=== PATIENT | male | born 2000 | race Caucasian/White ===

== ENCOUNTER 2021-05-11 19:24 | Emergency (ER) | payer OTHER ==
[2021-05-11] MEDS ORDERED: CETIRIZINE 10 MG TABLET PO STA (20:24)
[2021-05-11] MEDS ORDERED: predniSONE 20 MG TABLET PO STA (20:24)
--- NOTE | 2021-05-11 20:26 | ED Physician Documentation ---
History of Present Illness - Stated complaint Stated Complaint: HIVES/ITCHING - Chief complaint Chief Complaint: General - History obtained from History obtained from: Patient - History of Present Illness Timing: How many weeks ago (4) Pain level max: 0 Pain level now: 0 - Additonal information Additional information: Patient is a 20-year-old male, active [employer] who presents to the emergency department complaining of hives for the past month. He states that these occur after scratching or wearing tight clothes. Nothing seems to make it better or worse. He thinks that it may have started after taking aspirin about a month ago and developed hives at that time. He states that it occurs within 30 secon ds of scratching the affected area and can last for a few hours. No new medications, soaps, detergents. No recent illnesses. Review of Systems Constitutional: denies: Fever, Myalgias GI: denies: Vomiting, Diarrhea : denies: Dysuria Neurologic: denies: Headache PD PAST MEDICAL HISTORY - Past Medical History Past Medical History: No Cardiovascular: None Respiratory: None Neuro: None Endocrine/Autoimmune: None GI: None : None HEENT: None Psych: None Musculoskeletal: None Derm: None - Past Surgical History Past Surgical History: No - Present Medications Home Medications: Ambulatory Orders Medication Instructions Recorded Confirmed Cetirizine [ZyrTEC] 10 mg PO DAILY #30 tablet 05/11/21 predniSONE [Deltasone] 10 mg PO [id number] #42 tab 05/11/21 - Allergies Allergies/Adverse Reactions: Allergies Allergy/AdvReac Type Severity Reaction Status Date / Time aspirin AdvReac Hives Verified 05/11/21 19:37 - Social History Does the pt smoke?: No Smoking Status: Never smoker Does the pt drink ETOH?: No Does the pt have substance abuse?: No - Immunizations Immunizations are current?: Yes - POLST Patient has POLST: No PD ED PE NORMAL - Vitals Vital signs reviewed: Yes - General General: Alert and oriented X 3, No acute distress - HEENT HEENT: Moist mucous membranes - Neck Neck: Supple, no meningeal sign - Cardiac Cardiac: RRR - Respiratory Respiratory: No respiratory distress, Clear bilaterally - Abdomen Abdomen: Soft, Non tender, Non distended - Derm Derm: Warm and dry, Other (Patient has immediate skin eruption after light scratching. 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 Unclear etiology. We will trial on antihistamines as well as steroids. We will have him follow-up with his doctor for referral likely to dermatology or immunology. Patient counseled regarding signs and symptoms for which I believe and urgent re-evaluation would be necessary. Patient with good understanding of and agreement to plan and is comfortable going home at this time This document was made in part using voice recognition software. While efforts are made to proofread this document, sound alike and grammatical errors may occur. Departure - Departure Disposition: Home, Self Care Clinical Impression: Dermographic urticaria Condition: Good Instructions: ED Urticaria Follow-Up: your,doctor in 1week [Other] Prescriptions: predniSONE [Deltasone] 10 mg PO [id number] #42 tab Cetirizine [ZyrTEC] 10 mg PO DAILY #30 tablet Comments: You appear to have dermographism. This is usually immune mediated. Often times antihistamines will help. Sun exposure may also help improve the condition. It is recommended that you follow-up with a corporate representative and/or fur trimming machine operator for further care. [place] Your prescriptions were sent to [facility] in [place].
[2021-05-11 20:32] VITALS: BP 132/84
== END 2021-05-11 20:35 | disposition home or self-care (01) ==
LOC: ED 19:24
DX: L50.3 Dermatographic urticaria (principal)
CPT/HCPCS: 99282; 99283; A9270; J7512

== ENCOUNTER 2021-08-06 14:48 | Outpatient (CLI) | payer OTHER | END 2021-08-06 14:49 | disposition left against medical advice (07) | LOC: EMS 14:48 | DX: R55 Syncope and collapse (principal) ==

== ENCOUNTER 2022-12-26 17:29 | Emergency (ER) | payer OTHER ==
[2022-12-26 17:46] VITALS: BP 113/73; O2SAT 97
[2022-12-26 19:02] LABS: B. PARAPERTUSSIS- RESP PCR PAN NOT DETECTED; B. PERTUSSIS- RESP PCR PANEL NOT DETECTED; C. PNEUMONIAE- RESP PCR PANEL NOT DETECTED; CORONAVIRUS 229E-RESP PCR NOT DETECTED; CORONAVIRUS HKU1-RESP PCR NOT DETECTED; CORONAVIRUS NL63-RESP PCR NOT DETECTED; CORONAVIRUS OC43-RESP PCR NOT DETECTED; HUMAN METAPNEUMOVIRUS NOT DETECTED; INFLUENZA A- RESP PCR PANEL NOT DETECTED; INFLUENZA B - RESP PCR PANEL NOT DETECTED; M. PNEUMONIAE- RESP PCR PANEL NOT DETECTED; PARAINFLUENZA VIRUS 1 NOT DETECTED; PARAINFLUENZA VIRUS 2 NOT DETECTED; PARAINFLUENZA VIRUS 3 NOT DETECTED; PARAINFLUENZA VIRUS 4 NOT DETECTED; RHINOVIRUS/ENTEROVIRUS NOT DETECTED; RSV- RESP PCR PANEL NOT DETECTED
[2022-12-26 19:04] LABS: SARS-CoV-2 -RESP PCR PANEL DETECTED
--- NOTE | 2022-12-26 19:38 | ED Physician Documentation ---
History of Present Illness - Stated complaint Stated Complaint: BODY ACHES,COUGH,SINUS PX - Chief complaint Chief Complaint: Heent - History obtained from History obtained from: Patient - History of Present Illness Timing: Today - Additonal information Additional information: 22-year-old male with no significant past medical history presents for sore throat, nasal congestion, sinus pressure. Patient states "I think I have COVID". His roommate at home has similar symptoms. Reports chills, denies fevers. Denies shortness of breath, chest pain, other complaints. Review of Systems Constitutional: reports: Chills. denies: Fever Ears: denies: Loss of hearing, Ear pain, Drainage/discharge Nose: reports: Rhinorrhea / runny nose, Congestion. denies: Foreign Body Throat: reports: Sore throat. denies: Dental pain / toothache, Oral lesions / sores Cardiac: denies: Chest pain / pressure, Palpitations, Calf pain Respiratory: denies: Dyspnea, Cough, Wheezing GI: denies: Abdominal Pain, Nausea, Vomiting Neurologic: denies: Generalized weakness, Focal weakness, Numbness PD PAST MEDICAL HISTORY - Past Medical History Past Medical History: No Cardiovascular: None Respiratory: None Neuro: None Endocrine/Autoimmune: None GI: None : None HEENT: None Psych: None Musculoskeletal: None Derm: None - Past Surgical History Past Surgical History: No - Present Medications Home Medications: Ambulatory Orders Medication Instructions Recorded Confirmed Spironolactone [Aldactone] 25 mg PO BID 12/26/22 12/26/22 estradioL [Estradiol] 2 mg PO DAILY 12/26/22 12/26/22 - Allergies Allergies/Adverse Reactions: Allergies Allergy/AdvReac Type Severity Reaction Status Date / Time aspirin AdvReac Hives Verified 12/26/22 17:40 - Social History Does the pt smoke?: No Smoking Status: Never smoker Does the pt drink ETOH?: No Does the pt have substance abuse?: No - Immunizations Immunizations are current?: Yes - POLST Patient has POLST: No PD ED PE NORMAL - Vitals Vital signs reviewed: Yes - General General: Alert and oriented X 3, No acute distress, Well developed/nourished - HEENT HEENT: Atraumatic, PERRL, EOMI, Ears normal, Moist mucous membranes, Other (pharyngeal erythema without edema or exudates) - Neck Neck: Supple, no meningeal sign - Cardiac Cardiac: RRR, Strong equal pulses - Respiratory Respiratory: No respiratory distress, Clear bilaterally - Abdomen Abdomen: Soft, Non distended - Derm Derm: Normal color, Warm and dry, No rash - Extremities Extremities: No deformity, No tenderness to palpate, Normal ROM s pain, No edema - Neuro Neuro: Alert and oriented X 3, quarantine inspector 2-12 intact, No motor deficit, Normal speech - Psych Psych: Normal mood, Normal affect Results - Vitals Vitals: Vital Signs - 24 hr 12/26/22 17:37 Temperature 36.7 C Heart Rate 80 Respiratory 16 Rate Blood Pressure 113/73 O2 Saturation 97 Oxygen O2 Source Room air - Labs Labs: Laboratory Tests 12/26/22 17:42 Nasal Adenovirus (PCR) NOT DETECTED Nasal B. parapertussis DNA (PCR) NOT DETECTED Nasal Coronavir 229E PCR NOT DETECTED Nasal Coronavir HKU1 PCR NOT DETECTED Nasal Coronavir NL63 PCR NOT DETECTED Nasal Coronavir OC43 PCR NOT DETECTED Nasal Enterovir/Rhinovir PCR NOT DETECTED Nasal Influenza B PCR NOT DETECTED Nasal Influenza A PCR NOT DETECTED Nasal Parainfluen 1 PCR NOT DETECTED Nasal Parainfluen 2 PCR NOT DETECTED Nasal Parainfluen 3 PCR NOT DETECTED Nasal Parainfluen 4 PCR NOT DETECTED Nasal RSV (PCR) NOT DETECTED Nasal B.pertussis DNA PCR NOT DETECTED Nasal C.pneumoniae (PCR) NOT DETECTED Ovidio Human Metapneumo PCR NOT DETECTED Nasal M.pneumoniae (PCR) NOT DETECTED Nasal SARS-CoV-2 (PCR) DETECTED A PD Medical Decision Making - ED course Complexity details: reviewed results, re-evaluated patient, considered differential, d/w patient ED course: Well-appearing patient with viral symptoms, tested positive for COVID-19. Supportive care measures advised at bedside. Patient requested note for work, which was provided. Departure - Departure Disposition: 01 Home, Self Care Clinical Impression: COVID-19 Condition: Stable Instructions: ED Viral Syndrome Forms: PCP List Discharge Date/Time: 12/26/22 19:39
== END 2022-12-26 19:39 | disposition home or self-care (01) ==
LOC: ED 17:29
DX: U07.1 COVID-19 (principal)
CPT/HCPCS: 87633; 99283

== ENCOUNTER 2023-08-13 13:43 | Emergency (ER) | payer OTHER ==
[2023-08-13 13:55] VITALS: O2SAT 100
[2023-08-13 14:05] LABS: RAPID STREP SCREEN Negative (Negative)
--- NOTE | 2023-08-13 14:31 | ED Physician Documentation ---
PD HPI HEENT - Stated complaint Stated Complaint: SORE THROAT,RED - Chief complaint Chief Complaint: Heent - Additional information Additional information: 22-year-old male with sore throat. Pain started yesterday. Has had low-grade fevers and chills. He is also little bit of cough and congestion. No known ill contacts. Concerned he has strep throat. Review of Systems Constitutional: reports: Fever, Chills Ears: denies: Loss of hearing, Ear pain Nose: reports: Rhinorrhea / runny nose Throat: reports: Sore throat Respiratory: reports: Cough PD PAST MEDICAL HISTORY - Past Medical History Past Medical History: No Cardiovascular: None Respiratory: None Neuro: None Endocrine/Autoimmune: None GI: None : None HEENT: None Psych: None Musculoskeletal: None Derm: None - Past Surgical History Past Surgical History: No - Present Medications Home Medications: Ambulatory Orders Medication Instructions Recorded Confirmed Spironolactone [Aldactone] 25 mg PO BID 12/26/22 08/13/23 estradioL [Estradiol] 2 mg PO DAILY 12/26/22 08/13/23 Progesterone, Micronized 100 mg PO DAILY 08/13/23 08/13/23 [Prometrium] - Allergies Allergies/Adverse Reactions: Allergies Allergy/AdvReac Type Severity Reaction Status Date / Time aspirin AdvReac Hives Verified 08/13/23 13:51 - Social History Does the pt smoke?: No Smoking Status: Never smoker Does the pt drink ETOH?: No Does the pt have substance abuse?: No - Immunizations Immunizations are current?: Yes - POLST Patient has POLST: No PD ED PE NORMAL - Vitals Vital signs reviewed: Yes - General General: Alert and oriented X 3 - HEENT HEENT: Other (Diffuse pharyngeal and tonsillar erythema) - Neck Neck: Supple, no meningeal sign - Cardiac Cardiac: RRR - Respiratory Respiratory: No respiratory distress, Clear bilaterally Results - Vitals Vitals: Vital Signs - 24 hr 08/13/23 13:52 Temperature 36.8 C Heart Rate 73 Respiratory 16 Rate Blood Pressure 117/72 O2 Saturation 100 Oxygen O2 Source Room air - Labs Labs: Laboratory Tests 08/13/23 08/13/23 13:54 14:25 Nasal Adenovirus (PCR) NOT DETECTED Nasal B. parapertussis DNA (PCR) NOT DETECTED Nasal Coronavir 229E PCR NOT DETECTED Nasal Coronavir HKU1 PCR NOT DETECTED Nasal Coronavir NL63 PCR NOT DETECTED Nasal Coronavir OC43 PCR NOT DETECTED Nasal Enterovir/Rhinovir PCR NOT DETECTED Nasal Influenza B PCR NOT DETECTED Nasal Influenza A PCR NOT DETECTED Nasal Parainfluen 1 PCR NOT DETECTED Nasal Parainfluen 2 PCR NOT DETECTED Nasal Parainfluen 3 PCR NOT DETECTED Nasal Parainfluen 4 PCR NOT DETECTED Nasal RSV (PCR) NOT DETECTED Nasal B.pertussis DNA PCR NOT DETECTED Nasal C.pneumoniae (PCR) NOT DETECTED Ovidio Human Metapneumo PCR NOT DETECTED Nasal M.pneumoniae (PCR) NOT DETECTED Nasal SARS-CoV-2 (PCR) NOT DETECTED Group A Strep Rapid Negative PD Medical Decision Making - ED course ED course: rapid strep negative. Will send for culture. viral panel negative. Plan symptomatic management, Tylenol Motrin push fluids. Likely viral. Throat culture pending. Departure - Departure Disposition: 01 Home, Self Care Clinical Impression: Pharyngitis Condition: Good Instructions: ED Pharyngitis Viral Comments: Push fluids, ibuprofen or Tylenol for pain. Your viral tests were negative and rapid strep was negative await throat culture. Forms: PCP List
[2023-08-13 16:02] LABS: B. PARAPERTUSSIS- RESP PCR PAN NOT DETECTED; B. PERTUSSIS- RESP PCR PANEL NOT DETECTED; C. PNEUMONIAE- RESP PCR PANEL NOT DETECTED; CORONAVIRUS 229E-RESP PCR NOT DETECTED; CORONAVIRUS HKU1-RESP PCR NOT DETECTED; CORONAVIRUS NL63-RESP PCR NOT DETECTED; CORONAVIRUS OC43-RESP PCR NOT DETECTED; HUMAN METAPNEUMOVIRUS NOT DETECTED; INFLUENZA A- RESP PCR PANEL NOT DETECTED; INFLUENZA B - RESP PCR PANEL NOT DETECTED; M. PNEUMONIAE- RESP PCR PANEL NOT DETECTED; PARAINFLUENZA VIRUS 1 NOT DETECTED; PARAINFLUENZA VIRUS 2 NOT DETECTED; PARAINFLUENZA VIRUS 3 NOT DETECTED; PARAINFLUENZA VIRUS 4 NOT DETECTED; RHINOVIRUS/ENTEROVIRUS NOT DETECTED; RSV- RESP PCR PANEL NOT DETECTED; SARS-CoV-2 -RESP PCR PANEL NOT DETECTED
[2023-08-13 16:10] VITALS: BP 124/76
== END 2023-08-13 16:30 | disposition home or self-care (01) ==
LOC: ED 13:43
DX: J02.9 Acute pharyngitis, unspecified (principal)
CPT/HCPCS: 87070; 87430; 87633; 99283